=== PATIENT | male | born 1975 | race Caucasian/White ===

== ENCOUNTER 2017-03-27 23:37 | Emergency (ER) | payer SELFPAY ==
[~2017-03-27] VITALS: Ht 185.4 cm; Wt 84.5 kg
[2017-03-27 23:51] VITALS: BP 135/90; PULSE 77; RESP 18; TEMP 98.1; O2SAT 99
[2017-03-28] MEDS ORDERED: LIDOCAINE HCL 1% PF 30 ML VIAL INFIL ONE (01:45)
[2017-03-28] MEDS ORDERED: GABA600T PO (01:51)
[2017-03-28] MEDS ORDERED: BACT800T5 PO (02:18)
[2017-03-28] MEDS ORDERED: CLIN1CAP5 PO (02:18)
[2017-03-28] MEDS ORDERED: HYDR-3533 PO (02:18)
--- NOTE | 2017-03-28 02:18 | PD ---
HPI Chief Complaint: Skin Problem Time Seen by Provider: 01:25 Travel History International Travel<30 days: No Contact w/Intl Traveler<30days: No Traveled to known affect area: No History of Present Illness HPI 41-year-old male presents to the emergency department for swelling and redness and tenderness to the left axilla. Patient states she has had these multiple times over the past 3 months. Patient has been on antibiotic with temporary relief of symptoms only to have them recur. Patient states this evening he was trying to get the site to drain and squeezed the swelling in the left axilla vigorously and a large amount of purulent drainage was expressed. Patient states swelling has recurred and is very painful. Patient denies fever chills nausea vomiting and is not diabetic. Patient rates pain as 5/10 in intensity. No left upper extremity numbness tingling or weakness distal to the axilla. PFSH Past Medical History Narrative Medical Negative past history negative surgical history no tobacco use nursing notes reviewed Medical History: Denies Significant Hx Diminished Hearing: No Tetanus Vaccination: < 5 Years Influenza Vaccination: No Social History Alcohol Use: No Tobacco Use: No Substance Use: No Allergies-Medications (Allergen,Severity, Reaction): Coded Allergies: No Known Allergies (Unverified , 03/28/17) Reported Meds & Prescriptions Reported Meds & Active Scripts Active Lortab (Hydrocodone-Acetaminophen) 5-325 Mg Tab 1 Tab PO Q6H PRN Clindamycin (Clindamycin HCl) 150 Mg Cap 300 Mg PO Q6H 7 Days Bactrim DS (Sulfamethoxazole-Trimethoprim) 800-160 Mg Tab 1 Tab PO BID Reported Gabapentin 600 Mg Tab 600 Mg PO TID Review of Systems Except as stated in HPI: all other systems reviewed are Neg General / Constitutional: No: Fever, Chills HENT: No: Congestion Cardiovascular: No: Chest Pain or Discomfort Respiratory: No: Shortness of Breath Gastrointestinal: No: Nausea, Vomiting Musculoskeletal: Positive: Pain, No: Myalgias, Arthralgias Skin: Positive Rash (left axilla), Positive Lumps ( left axilla) Neurologic: No: Weakness, Dizziness, Syncope Psychiatric: No: Anxiety Hematologic/Lymphatic: No: Lymph Node Enlargement Physical Exam Narrative GENERAL: Well-developed well-nourished male in no acute distress no respiratory distress SKIN: Warm and dry. HEAD: Normocephalic. EYES: No scleral icterus. No injection or drainage. NECK: Supple, trachea midline. No JVD or lymphadenopathy. CARDIOVASCULAR: Regular rate and rhythm without murmurs, gallops, or rubs. RESPIRATORY: Breath sounds equal bilaterally. No accessory muscle use. GASTROINTESTINAL: Abdomen soft, non-tender, nondistended. MUSCULOSKELETAL: No cyanosis, or edema. Attention left axilla positive fluctuant soft tissue swelling with induration and erythema and ecchymosis with pointing and a few satellite areas of papular erythema; distally extremity is neurovascular tendon intact BACK: Nontender without obvious deformity. No CVA tenderness. Data Data Last Documented VS Vital Signs Date Time Temp Pulse Resp B/P Pulse Ox O2 Delivery O2 Flow Rate FiO2 03/28/17 02:34 97.9 72 18 124/79 99 Room Air Orders Lidocaine Pf 1% Inj (Xylocaine-Mpf 1% In (03/28/17 01:45) Clindamycin (Cleocin) (03/28/17 02:30) Acetamin-Hydrocod 325-5 Mg ([place] 5-325 (03/28/17 02:30) Wound Culture And Gram Stain (03/28/17 02:45) MDM Medical Decision Making Medical Screen Exam Complete: Yes Emergency Medical Condition: Yes Medical Record Reviewed: Yes Differential Diagnosis Abscess, cellulitis, folliculitis, carbuncle, furuncle Narrative Course After obtaining informed verbal consent incision and drainage was performed to the left axilla with packing with quarter-inch iodoform gauze; patient given first dose of her sciatica pain medication in the emergency department. Patient was spouse at bedside instructed to return to the emergency department 2 days for packing removal. Patient given prescription for antibiotic pain medication and encouraged to use intermittent warm compresses to area. Procedures Procedure Narrative After the risks and benefits were discussed the following procedure was performed: INCISION AND DRAINAGE OF ABSCESS: The area was prepped and was sterilely draped. A subcutaneous wheal of 1 % Xylocaine with a total number 3 mL was used to anesthetize the area. The area was properly anesthetized. A number 11 scalpel was used to make a 1.5-cm incision across the area of the abscess. Cultures were obtained. The abscess was drained an irrigated with normal saline. Quarter inch iodoform packing was placed in the wound. Sterile dressing applied. Patient advised to have packing removed in two days. Diagnosis Primary Impression: Abscess of axilla, left Referrals: Primary Care Physician 2 days Patient Instructions: General Instructions, Narcotic given in the ED Additional Instructions: Wound check for packing removal at 2 days Apply warm compresses intermittently Change dressing daily Complete course of antibiotic as prescribed Follow-up with primary care provider May take ibuprofen/Advil/Motrin every 6-8 hours as needed for pain associated inflammation Take pain medication as prescribed as needed Med/Other Pt SpecificInfo: Prescription(s) given Scripts Hydrocodone-Acetaminophen (Lortab)5-325 Mg Tab1 Tab PO Q6H PRN (PAIN) #7 TAB Ref 0 Prov:Nancy Mantilla MD 03/28/17 Clindamycin 150 Mg [id number] Mg PO Q6H 7 Days Ref 0 Prov:Nancy Mantilla MD 03/28/17 Sulfamethoxazole-Trimethoprim (Bactrim DS)800-160 Mg Tab1 Tab PO BID #20 TAB Ref 0 Prov:Nancy Mantilla MD 03/28/17 Disposition: 01 DISCHARGE HOME Condition: Stable Nacny Mantilla MD Mar 28, 2017 02:18
[2017-03-28] MEDS ORDERED: ACETAMINOPHEN/HYDROcodone 325 MG/5 MG TAB PO ONE (02:30)
[2017-03-28] MEDS ORDERED: CLINDAMYCIN 150 MG CAP PO ONE (02:30)
[2017-03-28 02:34] VITALS: BP 124/79; PULSE 72; RESP 18; TEMP 97.9; O2SAT 99
== END 2017-03-28 02:54 | disposition home or self-care (01) ==
LOC: PHED 23:37
DX: L02.412 Cutaneous abscess of left axilla (principal); B95.62 Methicillin resistant Staphylococcus aureus infection as the cause of diseases classified elsewhere
CPT/HCPCS: 10061; 86403; 87070; 87186

== ENCOUNTER 2017-03-30 19:57 | Emergency (ER) | payer SELFPAY ==
[~2017-03-30] VITALS: Ht 185.4 cm; Wt 86.4 kg
[~2017-03-30 19:57] MED LIST: BACT800T5 PO; CLIN1CAP5 PO; GABA600T PO; HYDR-3533 PO
[2017-03-30 20:18] VITALS: BP 129/81; PULSE 66; RESP 14; TEMP 98.2; O2SAT 99
--- NOTE | 2017-03-30 20:37 | PD ---
HPI Chief Complaint: Skin Problem Time Seen by Provider: 20:30 Travel History International Travel<30 days: No Contact w/Intl Traveler<30days: No Traveled to known affect area: No History of Present Illness HPI 41-year-old male presents to the emergency room for packing removal. Patient had packing placed 2 days ago in his left axillary abscess. Patient states he believes a large amount of placed in his wound. He does not remember saying it fall out. Patient reports improvement in symptoms with decreased pain, redness , and thighs. Patient denies fever, chills, nausea, vomiting. He has been taking antibiotics as prescribed. [facility] Past Medical History Medical History: Denies Significant Hx Diminished Hearing: No Immunizations Current: Yes Tetanus Vaccination: < 5 Years Influenza Vaccination: No Social History Alcohol Use: No Tobacco Use: No Substance Use: No Allergies-Medications (Allergen,Severity, Reaction): Coded Allergies: No Known Allergies (Unverified , 03/30/17) Reported Meds & Prescriptions Reported Meds & Active Scripts Active Clindamycin (Clindamycin HCl) 150 Mg Cap 300 Mg PO Q6H 7 Days Bactrim DS (Sulfamethoxazole-Trimethoprim) 800-160 Mg Tab 1 Tab PO BID Reported Gabapentin 600 Mg Tab 600 Mg PO TID Review of Systems Except as stated in HPI: all other systems reviewed are Neg Physical Exam Narrative GENERAL: Well-nourished, well-developed male in no acute distress. Afebrile. Ambulatory. SKIN: Focused skin assessment warm/dry. There is a nontender indurated area in the left axilla which measures about 1 cm in diameter. No fluctuance, drainage , erythema, or lymphangitis. Wound is closed and there is no packing. HEAD: Normocephalic. EYES: No scleral icterus. No injection or drainage. NECK: Supple, trachea midline. No JVD or lymphadenopathy. CARDIOVASCULAR: Regular rate and rhythm without murmurs, gallops, or rubs. RESPIRATORY: Breath sounds equal bilaterally. No accessory muscle use. PSYCHIATRIC: No delusional thought processes. No hallucinations. Data Data Last Documented VS Vital Signs Date Time Temp Pulse Resp B/P Pulse Ox O2 Delivery O2 Flow Rate FiO2 03/30/17 20:23 03/30/17 20:18 98.2 66 14 99 MDM Medical Decision Making Medical Screen Exam Complete: Yes Emergency Medical Condition: Yes Medical Record Reviewed: Yes Differential Diagnosis Abscess, packing removal, infection, MRSA Narrative Course 41-year-old female presents to the emergency room for packing removal. Patient had packing placed in his left axilla 2 days ago after incision and drainage. Patient reports extreme improvement in symptoms. He is being compliant with medication. Cultures grew out MRSA, patient was informed. Physical exam reveals a healing abscess without erythema, warmth, pain, or drainage. Wound is closed and there is no evidence of packing. Packing likely fell out in shower or with first dressing change. Patient was reassured. Discharged with wound care instructions and told to follow up with primary care physician or return for worsening symptoms. He understands and agrees to plan. Diagnosis Primary Impression: Abscess packing removal Referrals: Primary Care Physician Patient Instructions: Abscess Follow-up (ED), General Instructions Disposition: 01 DISCHARGE HOME Condition: Stable Aarti Rodriguez Mar 30, 2017 20:37
== END 2017-03-30 20:40 | disposition home or self-care (01) ==
LOC: PHEFT 19:57
DX: Z48.01 Encounter for change or removal of surgical wound dressing (principal)
CPT/HCPCS: 99281

== ENCOUNTER 2017-09-10 13:24 | Emergency (ER) | payer OTHER ==
[~2017-09-10] VITALS: Ht 185.4 cm; Wt 86.8 kg
[~2017-09-10 13:24] MED LIST changes: +CLIN150C14 PO; -CLIN1CAP5 PO; -HYDR-3533 PO
[2017-09-10 13:33] VITALS: BP 142/78; PULSE 78; RESP 16; TEMP 98.4; O2SAT 96
[2017-09-10] MEDS ORDERED: CEPH-460 PO (15:50)
--- NOTE | 2017-09-10 15:53 | PD ---
HPI Chief Complaint: Laceration/Skin Injury Time Seen by Provider: 15:00 Travel History International Travel<30 days: No Contact w/Intl Traveler<30days: No Traveled to known affect area: No History of Present Illness HPI 41-year-old male here with a laceration to the right palm caused by a metal wrench. He has a 3 cm flap laceration to the right palm. Injury occurred while at work prior to arrival The wound is moderately contaminated with mechanical grease. No tendon injury visualized. Patient has normal sensation and full range of motion of all digits. PFSH Past Medical History Medical History: Denies Significant Hx Diminished Hearing: No Immunizations Current: Yes Tetanus Vaccination: < 5 Years Influenza Vaccination: No Social History Alcohol Use: No Tobacco Use: No Substance Use: No Allergies-Medications (Allergen,Severity, Reaction): Coded Allergies: *MDRO Multi-Drug Resistant Organism (Verified Adverse Reaction, Unknown, MRSA, 09/10/17) MRSA (arm wound) - 03/28/17 Reported Meds & Prescriptions Reported Meds & Active Scripts Active Reported Gabapentin 600 Mg Tab 900 Mg PO HS Review of Systems Except as stated in HPI: all other systems reviewed are Neg Physical Exam Narrative GENERAL: Alert well-appearing male SKIN: Warm and dry. 3 cm V-shaped flap laceration right palm no tendon injury visualized. HEAD: Normocephalic. EYES: No scleral icterus. No injection or drainage. MUSCULOSKELETAL: No cyanosis. 3 cm V-shaped flap laceration right palm no tendon injury visualized. Patient is able to fully flex and extend all digits. Normal sensation. Brisk cap refill. Data Data Last Documented VS Vital Signs Date Time Temp Pulse Resp B/P (MAP) Pulse Ox O2 Delivery O2 Flow Rate FiO2 09/10/17 13:33 98.4 78 16 142/78 (99) 96 MDM Medical Decision Making Medical Screen Exam Complete: Yes Emergency Medical Condition: Yes Differential Diagnosis Laceration, tendon injury, ligament injury Narrative Course 41-year-old male here with a laceration to the right palm caused by a metal wrench. He has a 3 cm flap laceration to the right palm. The wound is moderately contaminated with mechanical grease. No tendon injury visualized. Patient has normal sensation and full range of motion of all digits. Extremities neurovascular intact. Suture repair performed. Patient tolerated procedure well. Procedures Procedure Narrative LACERATION LOCATION: Right palm LENGTH: 3 cm NUMBER OF STITCHES/TATYANA: 7 REPAIR: The area of the laceration was prepped with Betadine and sterilely draped. The laceration was infiltrated with 1% lidocaine. The wound was copiously irrigated and explored without evidence of foreign body, tendon injury or neurovascular injury. The wound was closed using 3-0 Ethilon. This was a single layer repair. A sterile dressing was applied. The patient was advised to keep the dressing clean and dry. Patient tolerated the procedure well. Diagnosis Primary Impression: Laceration of right hand Qualified Codes: S61.411A - Laceration without foreign body of right hand, initial encounter Referrals: [facility] Additional Instructions: Do not submerge the wound in water. Sutures need to be removed in 7-10 days. Keep the area clean by washing it daily with soap and water patent dry endplate clean dry dressing. Scripts Cephalexin (Keflex) 500 Mg Cap 500 MG PO Q6H for Infection for 5 Days, #20 CAP 0 Refills Prov: Lucinda Peterson 09/10/17 Disposition: 01 DISCHARGE HOME Condition: Stable Lucinda Peterson Sep 10, 2017 15:52
== END 2017-09-10 15:58 | disposition home or self-care (01) ==
LOC: PHEFT 13:24
DX: S61.411A Laceration without foreign body of right hand, initial encounter (principal); W27.8XXA Contact with other nonpowered hand tool, initial encounter; Y99.0 Civilian activity done for income or pay
CPT/HCPCS: 12002